=== PATIENT | male | born 1985 | race American Indian/Alaskan Native ===

== ENCOUNTER 2019-07-30 11:55 | Day surgery (SDC) | payer OTHER ==
[2019-07-30] MEDS ORDERED: LACTATED RINGERS 1,000 ML IV SCH (12:35)
--- NOTE | 2019-07-30 13:29 | Anesthesia Consultation ---
Anesthesia Consult and Med Hx Date of service: 07/30/19 - Airway Anesthetic Teeth Evaluation: Good ROM Head & Neck: Adequate Mental/Hyoid Distance: Adequate Mallampati Class: Class II Intubation Access Assessment: Probably Good - Pulmonary Exam CTA: Yes - Cardiac Exam Cardiac Exam: RRR - Pre-Operative Health Status ASA Pre-Surgery Classification: ASA2 Proposed Anesthetic Plan: General - Pulmonary Hx Smoking: Yes (1/2 PPD X 12 YRS) Hx Respiratory Symptoms: No (nasal congestion w/o pulmonary symptoms) Hx Sleep Apnea: No (EMILIANA PRE SCREEN LOW RISK) - Cardiovascular System Hx Hypertension: No - Central Nervous System CVA: No Hx Psychiatric Problems: Yes (depression) - Endocrine Hx Renal Disease: No Hx Liver Disease: No Hx Insulin Dependent Diabetes: No Hx Non-Insulin Dependent Diabetes: No Hx Thyroid Disease: No - Other Systems Hx Obesity: No
--- NOTE | 2019-07-30 13:29 | Anesthesia Day of Surgery ---
Anesthesia Day of Surgery - Day of Surgery Patient Examined: Yes Patient H&P Reviewed: Yes Patient is NPO: Yes
[2019-07-30] MEDS ORDERED: ceFAZolin/Water 2 GM/20 ML 2 GM/20 ML SYRINGE IV NR (13:41)
--- NOTE | 2019-07-30 13:42 | Ultrasound Report ---
SCROTAL ULTRASOUND WITH DOPPLER HISTORY: Right mass identified elsewhere and for surgery today. COMPARISON: No relevant comparison imaging. TECHNIQUE: Grayscale, color and spectral Doppler images were obtained of the scrotum. FINDINGS: RIGHT: Right testicle: No significant abnormality. No mass. Right testicular size: 4.5 x 2.3 x 3.1 cm. Right epididymis: Enlarged with a heterogeneous solid slightly irregular mass in the body measuring 1 .9 x 1.6 x 1.5 cm. LEFT: Left testicle: No significant abnormality. No mass. Left testicular size: cm. Left epididymis: No significant abnormality. Additional findings: Small bilateral hydroceles.. IMPRESSION: 1. Abnormal right epididymis with a mass of the body measuring 1.9 x 1.6 x 1.5 cm. 2. No testicular mass. 3. Small bilateral hydroceles. Signer Name: Frantz Bagley MD Signed: 07/30/2019 1:37 PM Workstation Name: [id number]
[2019-07-30] MEDS ORDERED: MIDAZOLAM 2 MG/2 ML INJ IV NR (14:00)
--- NOTE | 2019-07-30 14:24 | Cat Scan Report ---
CT ABDOMEN AND PELVIS WITHOUT CONTRAST INDICATION / CLINICAL INFORMATION: FOR SURGERY TODAY. TECHNIQUE: Axial CT images were obtained through the abdomen and pelvis without IV contrast. All CT scans at [facility] are performed using CT dose reduction for ALARA by means of automated exposure control. COMPARISON: None available. FINDINGS: LOWER CHEST: There is a 0.65 cm pulmonary nodule right middle lobe best delineated image 7 series 2. There is a 0.4 cm pulmonary nodule medial aspect right lower lobe best delineated image 20 series 2. There is a 0.65 cm pulmonary nodule left lower lobe best delineated image 15 series 2. Also 0.[address] eural-based nodular density left lower lobe best delineated image 30 series 2. LIVER: No significant abnormality. GALLBLADDER: No significant abnormality. BILE DUCTS: No significant abnormality. PANCREAS: No significant abnormality. SPLEEN: No significant abnormality. ADRENALS: No significant abnormality. RIGHT KIDNEY and URETER: No significant abnormality. LEFT KIDNEY and URETER: No significant abnormality. STOMACH and SMALL BOWEL: No significant abnormality. COLON: No significant abnormality. APPENDIX: No significant abnormality. PERITONEUM: Small ventral wall defect No free fluid. No free air. No fluid collection. LYMPH NODES: No significant adenopathy. AORTA and ARTERIES: No significant abnormality. IVC and VEINS: No significant abnormality. URINARY BLADDER: No significant abnormality. REPRODUCTIVE ORGANS: No significant abnormality. ADDITIONAL FINDINGS: None. SKELETAL SYSTEM: No significant abnormality. IMPRESSION: 1. Multiple pulmonary nodules as noted Fleischner Society pulmonary nodule recommendations Solid nodules Single Single solid nodule <6 mm (<100 mm3) low-risk patients: no routine follow-up required high-risk patients: optional CT at 12 months (particularly with suspicious nodule morphology and/or u pper lobe location; see "risk assessment" below) Solitary solid nodule 6-8 mm (100-250 mm3) low-risk patients: CT at 6-12 months, then consider CT at 18-24 months high-risk patients: CT at 6-12 months, then CT at 18-24 months Solitary solid nodule >8 mm (>250 mm3) low-risk and high-risk patients: consider CT at 3 months, PET/CT, or tissue sampling Multiple Multiple solid nodules <6 mm (<100 mm3) low-risk patients: no routine follow-up required high-risk patients: optional CT at 12 months Multiple solid nodules >6 mm (>100 mm3) low-risk patients: CT at 3-6 months, then consider CT at 18-24 months high-risk patients: CT at 3-6 months, then CT at 18-24 months When multiple nodules are present, the most suspicious nodule should guide further 2. Small ventral wall defect Signer Name: Chu Sarabia MD Signed: 07/30/2019 2:19 PM Workstation Name: [id number]
--- NOTE | 2019-07-30 14:32 | Post Operative Note ---
Date of procedure: 07/30/19 Pre-op diagnosis: solid r epidi lesion Post-op diagnosis: same Findings: same Procedure: r epidiymectomy Anesthesia: GETA Surgeon: JESSENIA PEARL Estimated blood loss: minimal Pathology: list (as above) Specimen disposition: to lab Condition: stable Disposition: PACU
--- NOTE | 2019-07-30 14:34 | Discharge Summary ---
Short Stay Discharge Plan Activity: other (no straining ) Weight Bearing Status: Full Weight Bearing Diet: low fat, low cholesterol Special Instructions: other Durable Medical Equipment Needed Upon Discharge: other (drain) Follow up with: [facility] [Primary Care Provider] - 48 Hours
[2019-07-30] MEDS ORDERED: dexAMETHasone 20 MG/5 ML VIAL ONE (14:35)
[2019-07-30] MEDS ORDERED: PHENYLEPHRINE/NS 1,000 MCG/10 ML SYRINGE (OR USE) IV ONE (14:35)
[2019-07-30] MEDS ORDERED: LIDOCAINE MPF (2%) 20 MG/1 ML VIAL 5 ML ONE (14:36)
[2019-07-30] MEDS ORDERED: SUCCINYLCHOLINE CHLORIDE 200 MG/10 ML INJ MDV ONE (14:36)
[2019-07-30] MEDS ORDERED: GLYCOPYRROLATE 0.4 MG/2 ML INJ ONE (14:36)
[2019-07-30] MEDS ORDERED: fentaNYL 100 MCG/2 ML INJ ONE ×2 (14:36→15:17)
[2019-07-30] MEDS ORDERED: propofoL 200 MG/20 ML VIAL IV ONE (14:36)
[2019-07-30] MEDS ORDERED: ONDANSETRON 4 MG/2 ML INJ ONE (14:36)
[2019-07-30] MEDS: HYDROmorphone 1 MG/1 ML INJ IV PRN ×2 (16:50→17:02)
--- NOTE | 2019-07-30 16:54 | Operative Report ---
PREOPERATIVE DIAGNOSES: Solid epididymal mass, rule out adenomatoid tumor. Normal testis on ultrasound. POSTOPERATIVE DIAGNOSES: Solid epididymal mass, rule out adenomatoid tumor. Normal testis on ultrasound. PROCEDURE: Right epididymectomy and flexible cystoscopy. SURGEON: Dr. Norris. ANESTHESIA: General. FINDINGS: This is a gentleman who had microscopic hematuria and solid mass, right epididymis. He now presents for treatment. All risks and implications discussed. DESCRIPTION OF PROCEDURE: The patient was brought to the operating room and placed on the operating table. Following induction of anesthesia, placed in the supine position, prepped and draped in usual sterile fashion. An oblique incision made over the right hemiscrotum, carried down through the scrotal layers to the tunica vaginalis. Tunica vaginalis was opened. Testis was delivered. There was a solid mass approximately 2 to 2.5 cm in the head of the epididymis. This was dissected and plane was developed between the epididymis and testis and this was triply tied distally. This was then divided and this mass was excised. The testicular defect was oversewn with 3-0 Vicryl and RB over a pledget of Surgicel. The patient tolerated the procedure well. Hemostasis was excellent. Minimal blood loss. Wound was irrigated. A Ham drain half-inch was placed in the dependent portion secured with silk and the superficial fascia was closed with 3-0 chromic, skin with 3-0 chromic, brought to recovery in stable condition. Flexible cystoscopy showed no masses, no irregularities, no strictures. Dressing was applied. Brought to recovery in stable condition. ESTIMATED BLOOD LOSS: Less than 5 mL. JOB# [id number] KASSIDY/PURVI
[2019-07-30 17:43] VITALS: BP 122/79
--- NOTE | 2019-07-30 19:33 | Post Anesthesia Evaluation ---
- Post Anesthesia Evaluation Patient Participated: Yes Airway Patent: Yes Stable Respiratory Function: Yes Nausea/Vomiting: No Temp > 96.8F: Yes Pain Manageable: Yes Adequeate Hydration: Yes Anesthesia Complications: No
== END 2019-07-30 18:21 | disposition home or self-care (01) ==
LOC: OR 11:55
PROVIDERS: ATTEND Urology
DX: N50.89 Other specified disorders of the male genital organs (principal); R31.0 Gross hematuria; F17.210 Nicotine dependence, cigarettes, uncomplicated; F32.9 Major depressive disorder, single episode, unspecified; D64.9 Anemia, unspecified; Z98.890 Other specified postprocedural states
CPT/HCPCS: 54830; 74176; 88304; 88312; 88342; 93975; J0330; J0690; J1100; J1170; J2250; J2370; J2405; J2704; J3010; J7120; 88309